=== PATIENT | female | born 1960 | race Caucasian/White ===

== ENCOUNTER 2021-09-15 14:04 | Observation (INO) | payer OTHER ==
[2021-09-15] MEDS ORDERED: Ondansetron ODT 4 MG TAB PO PRN (15:37)
[2021-09-15] MEDS ORDERED: Acetaminophen 325 MG TAB PO PRN (15:37)
[2021-09-15 17:29] VITALS: BMI 31.2
[2021-09-15 18:08] LABS: Thyroid Stimulating Hormone 1.8957 uIU/mL (0.35-4.94)
[2021-09-15] MEDS ORDERED: Atorvastatin Calcium 40 MG TAB PO SCH (21:00)
[2021-09-15 21:16] LABS: SARS-CoV-2 PCR by NAA Not Detected (NotDetected)
[2021-09-16 06:28] LABS: #Eosinphils 0.2 thou/uL (0.0-0.7); #Lymphocytes 2.1 thou/uL (1.20-3.40); #Monocytes 0.5 thou/uL (0.11-0.59); #Neutrophils 4.8 thou/uL (1.40-6.50); %Basophils 0.1 % (0.0-1.0); %Eosinophils 2.4 % (0.0-10.0); %Lymphocytes 27.8 % (21.0-51.0); %Neutrophils 63.7 % (42.0-75.0); Hemoglobin 13.9 g/dL (12.0-16.0); Mean Corpuscular HGB CONC 35.2 g/dL (32.0-36.0); Mean Corpuscular Hemoglobin 32.6 pg (27.0-31.0); Mean Corpuscular Volume 92.6 fL (78.0-98.0); Mean Platelet Volume 6.7 fL (7.4-10.4); Platelet Count 220 thou/uL (130-400); RBC Distribution Width 11.7 % (11.5-14.5); Red Blood Cell (RBC) Count 4.28 mill/uL (4.20-5.40); White Blood Cell (WBC) Count 7.6 thou/uL (4.8-10.8)
[2021-09-16 06:46] LABS: Anion Gap 13 mmol/L (10-20); BUN (Urea Nitrogen) 22 mg/dL (9.8-20.1); Calc. Creatinine Clearance 87 mL/min (70-130); Calcium 9.3 mg/dL (7.8-10.44); Carbon Dioxide 24 mmol/L (23-31); Cardiac Risk 5.3 (Less than 4.5); Chloride 107 mmol/L (98-107); Cholesterol 170 mg/dl (< 200 Desired); Glucose 94 mg/dL (80-115); HDL Cholesterol 32 mg/dL (>60 Neg Risk); LDL Cholesterol, Calculated 115 mg/dL; Potassium 4.5 mmol/L (3.5-5.1); Sodium 139 mmol/L (136-145); Triglycerides 113 mg/dL (Less than 150)
[2021-09-16] MEDS ORDERED: Aspirin 81 mg Enteric Coated Tablet PO SCH (09:00)
[2021-09-16 16:22] VITALS: BP 134/53; TEMP 97.6
[2021-09-16] MEDS ORDERED: Gabapentin 100 MG CAP PO SCH (21:00)
== END 2021-09-16 19:39 | disposition home or self-care (01) ==
LOC: ERS 14:04 → 3SE 15:12
PROVIDERS: ADMIT Internal Medicine; ATTEND Internal Medicine
DX: R20.2 Paresthesia of skin (principal); E03.9 Hypothyroidism, unspecified; M48.02 Spinal stenosis, cervical region; M50.321 Other cervical disc degeneration at C4-C5 level; I65.23 Occlusion and stenosis of bilateral carotid arteries; F17.210 Nicotine dependence, cigarettes, uncomplicated; R00.1 Bradycardia, unspecified; I12.9 Hypertensive chronic kidney disease with stage 1 through stage 4 chronic kidney disease, or unspecified chronic kidney disease; N18.2 Chronic kidney disease, stage 2 (mild); R53.1 Weakness; B91 Sequelae of poliomyelitis; E66.9 Obesity, unspecified; Z68.31 Body mass index [BMI] 31.0-31.9, adult; Z20.822 Contact with and (suspected) exposure to COVID-19; Z88.5 Allergy status to narcotic agent; Z79.82 Long term (current) use of aspirin; Z79.899 Other long term (current) drug therapy
CPT/HCPCS: 36415; 70551; 72141; 80048; 80061; 82607; 82746; 83735; 84443; 84484; 85025; 93005; 93880; G0378; U0003; U0005